=== PATIENT | female | born 1980 | race Caucasian/White ===

== ENCOUNTER 2023-09-14 09:45 | Emergency (ER) | payer MEDICARE, MEDICAID, SELFPAY ==
[2023-09-14 09:45] VITALS: BP 125/70; PULSE 61; RESP 16; TEMP 36.3; O2SAT 100; BMI 21.1
--- NOTE | 2023-09-14 10:23 | EDS_ITS ---
HPI History of Present Illness Chief Complaint: Head Injury Narrative Narrative: Patient is a 43-year-old female with a past medical history of ADHD, intellectual disability, OCD who presented to the emergency department for further evaluation management after a fall yesterday evening around 6:30 PM. According to caregivers at bedside she was out walking and bent over to tie her shoe she lost her balance and fell forward hitting her face. They deny any blood thinning medications. They state that she has been acting her normal self and has not had any nausea vomiting or any other symptoms associated with this. They state that she has been complaining of some facial discomfort associated with this and has not taken anything [id number] for pain control. They note that they are unsure of when her last tetanus shot was as they just recently took over care of her. They did also note that she checked her front tooth as well. [facility] Medical History ADHD Intellectual disability OCD (obsessive compulsive disorder) Patent ductus arteriosus Home Medications ?Medication ?Instructions ?Recorded ?Last Taken ?Type amlodipine 10 mg tablet 10 mg PO QDAY 06/10/23 Unknown History lisinopril 20 mg tablet mg PO 06/10/23 Unknown History metformin 500 mg tablet 500 mg PO QDAY 06/10/23 Unknown History oxybutynin chloride 10 mg 10 mg PO QDAY 06/10/23 Unknown History tablet,extended release 24 hr fluoxetine 20 mg capsule 20 mg PO DAILY #30 caps 07/14/23 Unknown Rx trazodone 100 mg tablet 200 mg (2 x 100 mg) PO QHS PRN 07/14/23 Unknown Rx sleep #60 tabs Allergy/AdvReac Type Severity Reaction Status Date / Time latex Allergy Mild Rash Verified 09/14/23 09:46 paroxetine (From Paxil) Allergy Mild PT UNSURE Verified 09/14/23 09:46 OF REACTION quetiapine (From Seroquel) Allergy Mild PT UNSURE Verified 09/14/23 09:46 OF REACTION Social History Smoking Status: Never smoker alcohol intake: never substance use type: does not use what type of physical activity do you participate in: other details: paces and fidgets most of the day. ROS ROS ED ROS Narrative Constitutional: Denies any headaches, lightheadedness, dizziness Ears nose and throat: Denies any changes in vision double vision blurry vision. Complains of chipped tooth as noted above Cardiovascular: Denies chest pain or palpitations Respiratory: Denies coughing wheezing shortness of breath Abdomen: Denies nausea vomit diarrhea Neurological: Denies any deviation from her normal baseline, numbness, weakness, tingling Skin: Complains of superficial abrasions to her face from the fall EXAM Physical Exam Narrative Exam Narrative: General: Patient sitting in bed resting comfortably did not appear to be in acute distress Head: Normocephalic, atraumatic, Ears nose and throat: Patient has bilateral cerumen noted in her ear canals and TMs unable to be visualized, no raccoon sign no Nixon sign, no nasal septal hematomas noted bilaterally, patient does have a chipped tooth noted in the front portion of her teeth on the upper half no pulp visualized no active bleeding visualized this injury occurred yesterday at 6:30 PM Neck: Soft, supple, trachea midline, no midline tenderness palpation of the cervical spine Cardiovascular: Regular rate and rhythm no murmurs gallops rubs noted Respiratory: Clear to auscultation bilaterally no rales rhonchi or wheeze noted Abdomen: Soft, nondistended, tender to palpation Musculoskeletal: All bony prominences palpated and taken joints through full range of motion no pain elicited, no tenderness palpation thoracolumbar spine Neurological: Patient appears to be at her baseline and acting appropriate, Skin: Patient superficial abrasions to the left side of her forehead and anterior nose no active bleeding noted do appear to be well-healing in nature Psychiatric: Mood and affect appropriate Const Vital Signs: 09/14/23 09:45 09/14/23 10:04 Temperature 97.3 F L Temperature Source Temporal Pulse Rate 61 Respiratory Rate 16 Respiratory Effort Normal Non-Labored Respiratory Depth Normal Respiratory Pattern Normal Blood Pressure 125/70 H Blood Pressure Mean 88 Pulse Ox 100 Oxygen Delivery Method Room Air Room Air MDM MDM MDM Narrative Medical decision making narrative: Patient is a 43-year-old female who presents to the emergency department after a fall yesterday evening around 6:30 PM. Patient at this point time has been acting her normal self according to bedside staff members at the longterm. Patient's tetanus shot will be updated here and she will be given Tylenol. Patient's exam once again is benign and do not feel that any imaging is indicated at this point in time. They were given return precautions and encouraged to return with worsening symptoms or other concerns. They are encouraged to have her follow-up with her dentist in the outpatient setting for her chipped tooth. They are encouraged to use Tylenol/ibuprofen for pain control at home. They are agreeable with this plan they would like to take the patient home all question concerns answered she was discharged home in stable condition. Patient's tetanus shot was updated here. She was also encouraged to follow-up with her primary care physician outpatient setting. Discharge Plan Triage Chief Complaint: Head Injury Other Complaint: Other, Pain/Inj ED Provider: Kemal Azul Dx/Rx/DC Orders Clinical Impression: Fall, Chipped tooth Prescriptions: No Action amlodipine 10 mg tablet 10 mg PO QDAY lisinopril 20 mg tablet PO oxybutynin chloride 10 mg tablet extended release 24hr 10 mg PO QDAY metformin 500 mg tablet 500 mg PO QDAY fluoxetine 20 mg capsule 20 mg PO DAILY Qty: 30 3RF trazodone 100 mg tablet 200 mg PO QHS PRN (Reason: sleep) Qty: 60 3RF Primary Care Provider: Shahriar Sesay Referrals: Shahriar Sesay MD [Primary Care Provider] - Activity Restrictions/Additional Instructions: Use ibuprofen/Tylenol as needed for pain. Your tetanus shot was updated today. Follow-up with your primary care physician outpatient setting. Follow-up with your dentist in the outpatient setting for your chipped tooth. Return with worsening symptoms or other concerns. Print Language: Luxembourgish Disposition Disposition: Home, Self Care
[2023-09-14] MEDS: Acetaminophen 325 MG Tablet 650 MG PO (10:34)
[2023-09-14] MEDS: Diphth,Pertuss(Acell),Tet Vac 0.5 ML Vial IM (10:34)
--- NOTE | 2023-09-14 10:41 | ED.RN ---
new group president gave name of guardian but unable to give number. per assistant account manager pt to have no contact with sister. lost charge card clerk aware and proceeded with tx
[2023-09-14 10:44] VITALS: BP 125/70; PULSE 61; RESP 16; TEMP 36.3; O2SAT 100
== END 2023-09-14 10:46 | disposition home or self-care (01) ==
LOC: ED 10:43
PROVIDERS: Emergency Provider Emergency Medicine; PCP Family Medicine; Visit Provider Emergency Medicine
DX: K03.81 Cracked tooth (principal); W18.39XA Other fall on same level, initial encounter; F79 Unspecified intellectual disabilities
CPT/HCPCS: 90715; 99283

== ENCOUNTER 2023-10-31 13:23 | Inpatient (IN) | payer MEDICARE, MEDICAID, SELFPAY ==
[2023-10-31] VITALS (13 sets, daily range): BP systolic 92–199; BP diastolic 53–157; PULSE 68–129; RESP 15–25; TEMP 36.3–38.6; O2SAT 88–98; BMI 21.8
--- NOTE | 2023-10-31 13:39 | ED.RN ---
PT DOES NOT APPEAR TO BE IN ANY DISTRESS. COLOR NORMAL, BREATHING EVEN AND UNLABORED. PLACE ON 2L O2.
--- NOTE | 2023-10-31 14:45 | RAD_ITS ---
STUDY: X-RAY CHEST REASON FOR EXAM: Female, 43 years old. Requiring O2 TECHNIQUE: Single AP portable view of the chest. COMPARISON: None. FINDINGS: There are bilateral lower lung increased opacities with consolidation. There is no demonstrated pleural abnormality. Normal size heart. Normal mediastinum and zaina. Normal visualized pulmonary arteries. Normal visualized aortic arch and descending thoracic aorta. Normal visualized thoracic spine. Normal visualized ribs, clavicles, and shoulders. There is no demonstrated abnormality of the visualized soft tissue structures of the upper abdomen. RAD/Chest 1 View (Portable) IMPRESSION: Bilateral pneumonia or edema. Electronically Signed: Zac Mcneil MD at 15:42 EDT ,
[2023-10-31 15:28] LABS: Absolute Lymphocyte Count 0.73 X10^3/uL (0.83-4.51); Basophil# 0.04 X10^3/uL; Basophil% 0.5 % (0-1); Hemoglobin 11.2 g/dL (12.0-15.0); Lymphocyte # 0.73 X10^3/ul (0.83-4.51); Lymphocyte % 9.6 % (19-41); Mean Corp Hgb Conc 32.9 g/dL (32-36); Mean Corpuscular Hgb 29.4 pg (27.0-32.0); Mean Corpuscular Volume 89.2 fL (81-99); Mean Platelet Vol. 11.6 fl (6.2-12.0); Monocyte# 0.81 X10^3/uL; Monocyte% 10.6 % (0-10); NRBC Flagged by Analyzer 0 % (0-5); Neutrophil % 78.6 % (47-70); Platelet Count 170 K/mm3 (150-450); RBC Distribution Width CV 12.7 % (11.6-14.6); RBC Distribution Width SD 41.4 fl (35.1-43.9); Red Blood Count 3.81 M/mm3 (4.2-5.4); White Blood Count 7.6 K/mm3 (4.4-11.0)
[2023-10-31 15:42] LABS: Anion Gap 7 (5-15); BUN 13 mg/dL (7-18); BUN/Creat Ratio 18.1 RATIO (10-20); Calcium,Total 8.9 mg/dL (8.5-10.1); Chloride 106 mmol/L (98-107); Creatinine, Serum 0.72 mg/dL (0.55-1.02); EST Glomerular Filtration Rate 94 mL/min (>60); Est Glom Filt Rate - Afr Amer 113 mL/min (>60); Glucose 155 mg/dL (74-106); Potassium 3.6 mmol/L (3.5-5.1); Sodium Level 136 mmol/L (136-145)
--- NOTE | 2023-10-31 16:12 | EDS_ITS ---
HPI History of Present Illness Chief Complaint: Shortness of Breath Narrative Narrative: Patient is a 43-year-old female with a past medical history of ADHD, OCD, impulse control disorder who presented to the emergency department chief complaint of cough, congestion. According the caregiver at bedside she notes that she has been not feeling well for the past few days and had had a cough. She states that she took her to an urgent care and they noted that her oxygen saturation was low prompting them to bring her here for further evaluation management. She states that she is not normally on oxygen at baseline. [facility] Medical History Impulse control disorder ADHD Intellectual disability OCD (obsessive compulsive disorder) Patent ductus arteriosus Home Medications ?Medication ?Instructions ?Recorded ?Last Taken ?Type amlodipine 10 mg tablet 10 mg PO QHS 06/10/23 Unknown History lisinopril 20 mg tablet 20 mg PO DAILY 06/10/23 Unknown History metformin 500 mg tablet 500 mg PO QHS 06/10/23 Unknown History oxybutynin chloride 10 mg 10 mg PO QHS 06/10/23 Unknown History tablet,extended release 24 hr fluoxetine 20 mg capsule 20 mg PO DAILY #30 caps 10/13/23 Unknown Rx acetaminophen 500 mg tablet 1,000 mg PO Q6H PRN fever or pain 10/31/23 Unknown History (Tylenol Extra Strength) aripiprazole 20 mg tablet 20 mg PO QHS 10/31/23 Unknown History norethindrone (contraceptive) 0.35 0.35 mg PO DAILY 10/31/23 Unknown History mg tablet (Jencycla) nystatin 100,000 unit/gram topical 1 applic topical DAILY 10/31/23 Unknown History cream polyethylene glycol 3350 17 17 g PO DAILY 10/31/23 Unknown History gram/dose oral powder trazodone 100 mg tablet 100 mg PO QHS sleep 10/31/23 Unknown History Allergy/AdvReac Type Severity Reaction Status Date / Time latex Allergy Mild Rash Verified 10/31/23 13:25 paroxetine (From Paxil) Allergy Mild PT UNSURE Verified 10/31/23 13:25 OF REACTION quetiapine (From Seroquel) Allergy Mild PT UNSURE Verified 10/31/23 13:25 OF REACTION Social History Smoking Status: Never smoker alcohol intake: never substance use type: does not use what type of physical activity do you participate in: other details: paces and fidgets most of the day. ROS ROS ED ROS Narrative Constitutional: Denies any fevers, chills, headaches Eyes: Denies change in vision double vision blurry vision Cardiovascular: Denies chest pain or palpitations Respiratory: Complains of cough and shortness of breath as noted above Abdomen: Denies nausea vomit diarrhea : Denies any urinary symptoms Neurological: Denies numbness, weakness, tingling Musculoskeletal: Denies back pain Skin: Denies rashes or lesions EXAM Physical Exam Narrative Exam Narrative: General: Patient lying in bed rest comfortably did not appear to be in acute distress Head: Atraumatic, normocephalic Eyes: PERRL bilaterally, EOMI bilaterally, no conjunctival injection noted Neck: Soft, supple, trachea midline Cardiovascular: Regular rate and rhythm no murmurs gallops rubs noted Respiratory: Clear to auscultation bilaterally no rales rhonchi wheeze noted Abdomen: Soft, nondistended, nontender to palpation Extremities: +5/5 strength noted in the bilateral lower extremities, no pedal edema no exam Neurological: Patient is at her baseline according to the caregiver at bedside Skin: Warm, dry, intact Const Vital Signs: 10/31/23 13:25 10/31/23 13:31 10/31/23 14:25 Temperature 98.6 F Temperature Source Temporal Pulse Rate 129 H Respiratory Rate 16 Respiratory Effort Respiratory Pattern Blood Pressure 199/157 H Blood Pressure Mean 171 Pulse Ox 88 92 Oxygen Delivery Method Room Air Nasal Cannula Nasal Cannula Oxygen Flow Rate (L/min) 2 10/31/23 14:25 10/31/23 14:25 10/31/23 14:25 Temperature Temperature Source Pulse Rate 106 H Respiratory Rate 22 H 15 Respiratory Effort Short of Breath Respiratory Pattern Tachypnea Blood Pressure 120/80 Blood Pressure Mean 93 Pulse Ox 91 91 Oxygen Delivery Method Nasal Cannula Nasal Cannula Nasal Cannula Oxygen Flow Rate (L/min) 2 2 2 10/31/23 15:00 10/31/23 16:00 Temperature Temperature Source Pulse Rate 110 H 99 Respiratory Rate 18 15 Respiratory Effort Respiratory Pattern Blood Pressure 129/81 H 124/82 H Blood Pressure Mean 97 96 Pulse Ox 91 91 Oxygen Delivery Method Nasal Cannula Nasal Cannula Oxygen Flow Rate (L/min) 2 2 MDM MDM MDM Narrative Medical decision making narrative: Patient is a 43-year-old female who presented to the emerged part with chief complaint of cough, congestion and hypoxia. Patient will have a workup performed here on the differential diagnose includes but not limited to pneumonia, CHF exacerbation, upper respiratory infection second of ideology. Once workup is obtained reviewed she will be reevaluated. Patient's CBC reviewed showed no evidence of leukocytosis white blood count normal at 7.6, hemoglobin 11.2, platelet count normal at 170. Patient sodium normal at 136, potassium is normal at 3.6, creatinine normal at 0.72. I did add proBNP on to the workup. Patient's chest x-ray was reviewed and showed bilateral pneumonia or edema. At this point time patient was given Rocephin and azithromycin as her chest x- ray was concerning for pneumonia. Patient does not require oxygen at baseline do believe she will warrant admission to the hospital service then. Patient case will be discussed with hospitalist. Did discuss case with hospitalist who accept patient for admission. Patient and caregiver at bedside were notified with all question and concerns answered. Lab Data Labs: Laboratory Results - last 24 hr 10/31/23 15:13 WBC 7.6 RBC 3.81 L Hgb 11.2 L Hct 34.0 L MCV 89.2 MCH 29.4 MCHC 32.9 RDW Std Deviation 41.4 RDW Coeff of Nilda 12.7 Plt Count 170 MPV 11.6 Immature Gran % (Auto) 0.700 Neut % (Auto) 78.6 H Lymph % (Auto) 9.6 L [place] % (Auto) 10.6 H Eos % (Auto) 0.0 Baso % (Auto) 0.5 Absolute Neuts (auto) 6.0 Absolute Lymphs (auto) 0.73 L Nucleated RBC % 0 Sodium 136 Potassium 3.6 Chloride 106 Carbon Dioxide 23.0 Anion Gap 7 BUN 13 Creatinine 0.72 Est GFR (MDRD) Af Amer 113 Est GFR (MDRD) Non-Af 94 BUN/Creatinine Ratio 18.1 Glucose 155 H Calcium 8.9 Radiography Diagnostic Testing: Clinical Impression(s) from Imaging Studies Chest X-Ray 10/31/23 14:45 IMPRESSION: Bilateral pneumonia or edema. Electronically Signed: Zac Mcneil MD at 15:42 EDT , Discharge Plan Triage Chief Complaint: Shortness of Breath ED Provider: Kemal Azul Dx/Rx/DC Orders Clinical Impression: Hypoxia, Pneumonia Prescriptions: No Action amlodipine 10 mg tablet 10 mg PO QHS lisinopril 20 mg tablet 20 mg PO DAILY oxybutynin chloride 10 mg tablet extended release 24hr 10 mg PO QHS metformin 500 mg tablet 500 mg PO QHS norethindrone (contraceptive) [Jencycla] 0.35 mg tablet 0.35 mg PO DAILY acetaminophen [Tylenol Extra Strength] 500 mg tablet 1,000 mg PO Q6H PRN (Reason: fever or pain) nystatin 100,000 unit/gram cream 1 applic topical DAILY polyethylene glycol 3350 17 gram/dose powder 17 g PO DAILY trazodone 100 mg tablet 100 mg PO QHS aripiprazole 20 mg tablet 20 mg PO QHS fluoxetine 20 mg capsule 20 mg PO DAILY Qty: 30 3RF Primary Care Provider: Shahriar Sesay Referrals: Shahriar Sesay MD [Primary Care Provider] - Print Language: Macedonian
--- NOTE | 2023-10-31 16:17 | PCM.HP.STD ---
HPI - General General Date of Admission: 10/31/23 Date of Service: 10/31/23 Chief Complaint: cough, congestion HPI Narrative AMELIE MITTAL, is a 43 F with a PMH as outlined who presents via the ED on 10/31/2023 with a complaint of shortness of breath and cough which has been going on for several days. The cough has been productive of sputum. She denied any fever, chills, nausea, vomiting, palpitations, dizziness or any other complaints. Review of systems was otherwise negative. She went to an urgent care facility today and was found to be hypoxic at 88% on room air so she was sent to the ED. history was mainly gotten from her carer who was with her. Carer says she had been eating well and there were no other active complaints. Patient just kept on asking she could go home and could not contribute much to the history. Vitals in the ED were blood pressure 124/82, pulse rate of 99, respiratory rate of 15 and she was saturating at 91% on 2 L of oxygen. CBC showed hemoglobin of 11.2, WBC of 7.6 and platelets of 170. Chemistry was unremarkable. BNP was pending. Chest x-ray showed bilateral pneumonia or edema. She has been admitted to be managed for community-acquired pneumonia. She was started on ceftriaxone and azithromycin in the ED. [facility] Medical History Impulse control disorder ADHD Intellectual disability OCD (obsessive compulsive disorder) Patent ductus arteriosus Home Medications ?Medication ?Instructions ?Recorded ?Last Taken ?Type amlodipine 10 mg tablet 10 mg PO QHS 06/10/23 Unknown History lisinopril 20 mg tablet 20 mg PO DAILY 06/10/23 Unknown History metformin 500 mg tablet 500 mg PO QHS 06/10/23 Unknown History oxybutynin chloride 10 mg 10 mg PO QHS 06/10/23 Unknown History tablet,extended release 24 hr fluoxetine 20 mg capsule 20 mg PO DAILY #30 caps 10/13/23 Unknown Rx acetaminophen 500 mg tablet 1,000 mg PO Q6H PRN fever or pain 10/31/23 Unknown History (Tylenol Extra Strength) aripiprazole 20 mg tablet 20 mg PO QHS 10/31/23 Unknown History norethindrone (contraceptive) 0.35 0.35 mg PO DAILY 10/31/23 Unknown History mg tablet (Jencycla) nystatin 100,000 unit/gram topical 1 applic topical DAILY 10/31/23 Unknown History cream polyethylene glycol 3350 17 17 g PO DAILY 10/31/23 Unknown History gram/dose oral powder trazodone 100 mg tablet 100 mg PO QHS sleep 10/31/23 Unknown History Allergy/AdvReac Type Severity Reaction Status Date / Time latex Allergy Mild Rash Verified 10/31/23 13:25 paroxetine (From Paxil) Allergy Mild PT UNSURE Verified 10/31/23 13:25 OF REACTION quetiapine (From Seroquel) Allergy Mild PT UNSURE Verified 10/31/23 13:25 OF REACTION Social History Smoking Status: Never smoker alcohol intake: never substance use type: does not use what type of physical activity do you participate in: other details: paces and fidgets most of the day. ROS ROS Narrative review of systems obtained mainly from her care as patient could not really contribute much to the history. Constitutional Constitutional: Denies anorexia, chills, fatigue, fever(s), malaise or weakness Eyes Eyes: Denies change in vision ENT HEENT: Denies dysphagia or headache(s) Cardiovascular Cardiovascular: Denies chest pain, dyspnea on exertion, lightheadedness, orthopnea, palpitations, paroxysmal nocturnal dyspnea, rapid heart rate or syncope Respiratory/Chest Respiratory/Chest: Reports cough, dyspnea, productive cough, shortness of breath at rest, shortness of breath with exertion and wheezing Gastrointestinal Gastrointestinal: Denies abdominal pain, constipation, diarrhea, nausea or vomiting Genitourinary Genitourinary: Denies burning urination or dysuria Musculoskeletal Musculoskeletal: Denies arthralgias or back pain Neurologic Neurologic: Denies confusion, dizziness, focal weakness or headache(s) Psychiatric Psychiatric: Denies anxiety or depression Hematologic/Lymphatic Hematologic/Lymphatic: Denies anemia Vital Signs Vital Signs Vital Signs: 10/31/23 13:25 10/31/23 13:31 10/31/23 14:25 Temperature 98.6 F Temperature Source Temporal Pulse Rate 129 H Respiratory Rate 16 Respiratory Effort Respiratory Pattern Blood Pressure 199/157 H Blood Pressure Mean 171 Pulse Ox 88 92 Oxygen Delivery Method Room Air Nasal Cannula Nasal Cannula Oxygen Flow Rate (L/min) 2 10/31/23 14:25 10/31/23 14:25 10/31/23 14:25 Temperature Temperature Source Pulse Rate 106 H Respiratory Rate 22 H 15 Respiratory Effort Short of Breath Respiratory Pattern Tachypnea Blood Pressure 120/80 Blood Pressure Mean 93 Pulse Ox 91 91 Oxygen Delivery Method Nasal Cannula Nasal Cannula Nasal Cannula Oxygen Flow Rate (L/min) 2 2 2 10/31/23 15:00 10/31/23 16:00 Temperature Temperature Source Pulse Rate 110 H 99 Respiratory Rate 18 15 Respiratory Effort Respiratory Pattern Blood Pressure 129/81 H 124/82 H Blood Pressure Mean 97 96 Pulse Ox 91 91 Oxygen Delivery Method Nasal Cannula Nasal Cannula Oxygen Flow Rate (L/min) 2 2 Physical Exam Const alert and no apparent distress General Appearance: cooperative HEENT normocephalic, head/scalp atraumatic, hearing grossly normal bilaterally, moist oral mucous membranes and oropharynx normal Mouth: oral and palatal mucosa normal Eyes PERRL, EOMs intact bilaterally and conjunctivae normal Neck no lymphadenopathy and supple Resp Resp Narrative: Mildly diminished breath sounds bibasilarly. No wheezes or crackles. On 2 L of oxygen. Cardio regular rate, regular rhythm, S1 normal heart sound, S2 normal heart sound and no murmurs GI normal to inspection, nondistended, normoactive bowel sounds, soft to palpation, non-tender and non-distended Extremity normal to inspection, full ROM and no clubbing, cyanosis or edema Neuro CN's II-XII intact bilaterally, moves all extremities and no focal motor deficits Neuro Narrative: alert, but confused. Sensorium / Orientation: awake and alert Motor Exam: strength 5/5 throughout Psych affect normal Results Lab / Micro Data 10/31/23 15:13 10/31/23 15:13 Labs: Laboratory Results - last 24 hr 10/31/23 15:13: WBC 7.6, RBC 3.81 L, Hgb 11.2 L, Hct 34.0 L, MCV 89.2, MCH 29.4, MCHC 32.9, RDW Std Deviation 41.4, RDW Coeff of Nilda 12.7, Plt Count 170, MPV 11.6, Immature Gran % (Auto) 0.700, Neut % (Auto) 78.6 H, Lymph % (Auto) 9.6 L, [place] % (Auto) 10.6 H, Eos % (Auto) 0.0, Baso % (Auto) 0.5, Absolute Neuts (auto) 6.0, Absolute Lymphs (auto) 0.73 L, Nucleated RBC % 0, Sodium 136, Potassium 3.6, Chloride 106, Carbon Dioxide 23.0, Anion Gap 7, BUN 13, Creatinine 0.72, Est GFR (MDRD) Af Amer 113, Est GFR (MDRD) Non-Af 94, BUN/Creatinine Ratio 18.1, Glucose 155 H, Calcium 8.9 Micro: Microbiology 10/31/23 15:19 Mucosa - Nose SARS-CoV-2, Influenza & RSV (PCR) - Final Imaging Radiology Impression Chest X-Ray 10/31/23 14:45 IMPRESSION: Bilateral pneumonia or edema. Electronically Signed: Zac Mcneil MD at 15:42 EDT , Assessment & Plan Assessment/Plan (1) Pneumonia: (2) Hypoxia: PLAN: Plan #HYpoxia due to community acquired pneumonia Admit to [facility] WBC is not elevated. Currently on 2 L of oxygen at home. Does not wear oxygen at home. Get urine for strep and Legionella antigens. Respiratory panel negative for COVID and influenza as well as RSV Will continue IV ceftriaxone and azithromycin started in the ED. Get sputum cultures. Breathing treatments bronchodilators. Titrate oxygen to maintain saturation above 90%. #Hypertension: On amlodipine and lisinopril. IV hydralazine. #ADHD: On paroxetine and aripiprazole #Type 2 diabetes mellitus: On lisinopril DVT prophylaxis: Lovenox CODE STATUS: presumptive full code Patient has an search specialist who is her guardian, Crystal Abreu. I tried calling her at the [employer] ([phone]). Voicemail left for her guardian to contact the medical team to clarify the CODE STATUS. Per patient's carer, patient's mother is not allowed to contact patient or be involved in her care. Charges/Coding Visit Charges Inpatient E&M: 44435 Init Hosp L3
[2023-10-31] MEDS: Ceftriaxone 1 GM/50 ML BAG IV (16:28)
[2023-10-31] MEDS: Acetaminophen 500 MG Tablet 1000 MG PO (16:36)
--- NOTE | 2023-10-31 16:45 | NURSING ---
MED SURG KORAM HYPOXIA, PNEUMONIA
[2023-10-31 16:46] LABS: BNP,B-Type NATRIURETIC PEPTIDE 29.2 pg/mL (0-100)
[2023-10-31] MEDS: Azithromycin 500 MG in Dextrose 5%-Water (250mL Bag) 250 ML 250 MG IV (16:54)
--- NOTE | 2023-10-31 17:17 | NURSING ---
MED SURG KORAM HYPOXIA, PNEUMONIA
[2023-10-31] MEDS: 0.9% Normal Saline (1000mL) 1,000 ML 125 ML IV (19:06)
[2023-10-31] MEDS: Ipratropium/Albuterol Sulfate 3 ML AMPUL.NEB INHALATION (19:56)
[2023-10-31] MEDS: ARIPiprazole 10 MG Tablet 20 MG PO (21:18)
[2023-10-31] MEDS: Tolterodine Tartrate 2 MG CAP.SA PO (21:19)
[2023-10-31] MEDS: amLODIPine 10 MG Tablet PO (21:19)
[2023-10-31] MEDS: traZODone 100 MG Tablet PO (21:19)
[2023-11-01] VITALS (12 sets, daily range): BP systolic 108–126; BP diastolic 68–78; PULSE 74–101; RESP 16–18; TEMP 36.6–37.9; O2SAT 92–97
[2023-11-01] MEDS: 0.9% Normal Saline (1000mL) 1,000 ML 125 ML IV (03:22)
[2023-11-01 06:56] LABS: Absolute Lymphocyte Count 0.55 X10^3/uL (0.83-4.51); Absolute Neutrophil Count 5.1 X10^3/uL (2.0-7.7); Basophil# 0.02 X10^3/uL; Basophil% 0.3 % (0-1); Eosinophil# 0.06 X10^3/uL; Eosinophils% 0.9 % (0-5); Hematocrit 32.8 % (37-47); Hemoglobin 10.7 g/dL (12.0-15.0); Lymphocyte # 0.55 X10^3/ul (0.83-4.51); Lymphocyte % 8.5 % (19-41); Mean Corp Hgb Conc 32.6 g/dL (32-36); Mean Corpuscular Hgb 29.4 pg (27.0-32.0); Mean Corpuscular Volume 90.1 fL (81-99); Mean Platelet Vol. 11.9 fl (6.2-12.0); Monocyte# 0.71 X10^3/uL; NRBC Flagged by Analyzer 0 % (0-5); Neutrophil % 78.8 % (47-70); POSITIVE DIFFERENTIAL YES; Platelet Count 151 K/mm3 (150-450); RBC Distribution Width CV 12.9 % (11.6-14.6); RBC Distribution Width SD 42.5 fl (35.1-43.9); Red Blood Count 3.64 M/mm3 (4.2-5.4); White Blood Count 6.5 K/mm3 (4.4-11.0)
[2023-11-01 07:16] LABS: Anion Gap 7 (5-15); BUN 8 mg/dL (7-18); BUN/Creat Ratio 15.2 RATIO (10-20); Calcium,Total 8.5 mg/dL (8.5-10.1); Chloride 110 mmol/L (98-107); Creatinine, Serum 0.53 mg/dL (0.55-1.02); EST Glomerular Filtration Rate 133 mL/min (>60); Est Glom Filt Rate - Afr Amer 161 mL/min (>60); Estimated Creatinine Clearance 116.97 ml/min; Glucose 120 mg/dL (74-106); Potassium 3.6 mmol/L (3.5-5.1); Sodium Level 139 mmol/L (136-145)
--- NOTE | 2023-11-01 07:50 | PCM.PN.HOSP ---
Reason for Visit Reason for Visit: Cough/hypoxia Subjective Subjective Patient is a 43-year-old white female who presented to the emergency department [facility] on 10/31/2023 with cough and fever. Patient does have some developmental disability and a lot of the history was obtained from her caregiver. Evidently, she has been having some shortness of breath and cough for several days. Cough has been productive of sputum. She denied any home fever, chills, nausea, vomiting, chest pain, palpitations or dizziness. She presented to an urgent care on the day of presentation and was found to be hypoxic at 88% on room air so she was sent to the emergency department for further evaluation. She has been eating well and there have been no other complaints with regards to her functional status. Vital signs on presentation showed a temperature of 98.6, heart rate 129, blood pressure was initially 199/157 with a repeat of 120/80, respiratory rate was 16-25 and oxygen saturations were 88% on room air. She was placed on 2 L nasal cannula with improvement in her oxygenation status to 90 to 92%. While in the emergency department she developed a fever with a Tmax of 101.5. CBC showed a normal white count with a mild anemia having a hemoglobin 11.2 and normal platelet count however she did have a left shift within 78.6% neutrophilia. Her chemistry panel was unremarkable other than some mild hyperglycemia with a blood sugar of 155. BNP was obtained and found to be normal at 29.2. Chest x-ray showed bilateral increased opacities with consolidation but no evidence of pleural abnormality and was otherwise unremarkable. No issues. Patient repetitively asks if she can go home. I did inform her that we would get her home once she was off oxygen or at least so stability for 24 hours. I was informed by case management that she would be able to go back to her [facility] situation on oxygen if need be. Objective Data Objective Data Vital Signs: Vital Signs Temp Pulse Resp BP Pulse Ox O2 Del Method O2 Flow Rate 98.4 F 90 18 106/69 94 Nasal Cannula 2 11/01/23 02:43 11/01/23 03:57 11/01/23 02:43 10/31/23 20:43 11/01/23 03:57 11/01/23 03:57 11/01/23 03:57 Oxygen Flow Rate (L/min) 2 Oxygen Delivery Method Nasal Cannula Weight: 57.697 kg Body Mass Index (BMI) 21.8 Intake & Output: Intake and Output for Last 24 Hours 10/30/23 10/31/23 11/01/23 23:59 23:59 23:59 Intake Total 305 / 805 1500 / 1500 Output Total 225 / 225 Balance 305 / 580 1275 / 1275 Lab / Micro Data 11/01/23 06:00 11/01/23 06:00 Labs: Laboratory Results - last 24 hr 10/31/23 15:13: WBC 7.6, RBC 3.81 L, Hgb 11.2 L, Hct 34.0 L, MCV 89.2, MCH 29.4, MCHC 32.9, RDW Std Deviation 41.4, RDW Coeff of Nilda 12.7, Plt Count 170, MPV 11.6, Immature Gran % (Auto) 0.700, Neut % (Auto) 78.6 H, Lymph % (Auto) 9.6 L, Lynn % (Auto) 10.6 H, Eos % (Auto) 0.0, Baso % (Auto) 0.5, Absolute Neuts (auto) 6.0, Absolute Lymphs (auto) 0.73 L, Nucleated RBC % 0, Sodium 136, Potassium 3.6, Chloride 106, Carbon Dioxide 23.0, Anion Gap 7, BUN 13, Creatinine 0.72, Est GFR (MDRD) Af Amer 113, Est GFR (MDRD) Non-Af 94, BUN/Creatinine Ratio 18.1, Glucose 155 H, Calcium 8.9, B-Natriuretic Peptide 29.2 11/01/23 06:00: WBC 6.5, RBC 3.64 L, Hgb 10.7 L, Hct 32.8 L, MCV 90.1, MCH 29.4, MCHC 32.6, RDW Std Deviation 42.5, RDW Coeff of Nilda 12.9, Plt Count 151, MPV 11.9, Immature Gran % (Auto) 0.500, Neut % (Auto) 78.8 H, Lymph % (Auto) 8.5 L, Lynn % (Auto) 11.0 H, Eos % (Auto) 0.9, Baso % (Auto) 0.3, Absolute Neuts (auto) 5.1, Absolute Lymphs (auto) 0.55 L, Nucleated RBC % 0, Sodium 139, Potassium 3.6, Chloride 110 H, Carbon Dioxide 22.0, Anion Gap 7, BUN 8, Creatinine 0.53 L, Estim Creat Clear Calc 116.97, Est GFR (MDRD) Af Amer 161, Est GFR (MDRD) Non-Af 133, BUN/Creatinine Ratio 15.2, Glucose 120 H, Calcium 8.5 Micro: Microbiology 10/31/23 20:55 Urine, Random Streptococcus pneumoniae Antigen (M - Final 10/31/23 20:55 Urine, Clean Catch Legionella Antigen - Final 10/31/23 15:19 Mucosa - Nose SARS-CoV-2, Influenza & RSV (PCR) - Final Radiography Diagnostic Testing: Radiology Impression Chest X-Ray 10/31/23 14:45 IMPRESSION: Bilateral pneumonia or edema. Electronically Signed: Zac Mcneil MD at 15:42 EDT , Physical Exam Const Constitutional Narrative: Thin, middle-aged, white female, lying in left side-lying in bed under multiple covers, appears comfortable, does not appear toxic, currently on 2 L nasal cannula with no signs of respiratory distress HEENT head/scalp atraumatic and moist oral mucous membranes HEENT Narrative: Dentition is poor, lips are slightly dry, mucous membranes are otherwise moist Head and Scalp: normocephalic Resp normal respiratory effort, no retractions and no use of accessory muscles Resp Narrative: Few crackles at bases bilaterally right greater than left Auscultation: crackles; Negative for rhonchi or wheezes Cardio regular rate, regular rhythm, S1 normal heart sound, S2 normal heart sound, no murmurs, no rub, no gallops and no clicks GI normal to inspection, nondistended, normoactive bowel sounds, soft to palpation and non-tender Extremity no clubbing, cyanosis or edema Extremity Narrative: Pedal and radial pulses are 2+ Neuro oriented x3 Psych Psych Narrative: Currently calm, repetitive questioning when she can go home Assessment & Plan Assessment/Plan (1) Fever: (2) Hyperglycemia: (3) Pneumonia: (4) Hypoxia: PLAN: Plan Acute hypoxia secondary to acquired pneumonia -Chest x-ray consistent with consolidation probable pneumonia and atelectasis -At baseline is on room air and currently requiring 2 L of oxygen to keep sats greater than or equal to 89% -Wean oxygen as able -Will check amatory pulse ox prior to discharge -Continue scheduled and as needed DuoNebs -Strep pneumo and Legionella antigens are negative -COVID/flu/RSV are negative -check respiratory viral panel -Continue ceftriaxone but discontinue azithromycin with negative Legionella antigen -Sputum culture ordered but still pending as patient has not been able to produce -Add incentive spirometry and Acapella -Add Mucinex 1200 p.o. twice daily DM-2 hyperglycemia -Highly suspect acute elevations are reactive due to infection -Hold home metformin -Carb controlled diet -Accu-Cheks as ordered -SSI Essential hypertension -Continue home amlodipine -Continue home lisinopril Urinary incontinence -Continue home oxybutynin Chronic constipation -Continue home MiraLAX OCD/impulse control disorder -Continue aripiprazole -Monitor for orthostatic hypotension -Resides at a [facility] Intellectual disability -Continued outpatient follow-up ADHD -Management per outpatient psychiatrist Intermittent insomnia -Continue home trazodone DVT prophylaxis -Continue enoxaparin 40 daily Charges/Coding Visit Charges Inpatient E&M: 70650 Subs Hosp L2
[2023-11-01] MEDS: Ceftriaxone 1 GM/50 ML BAG IV (10:26)
[2023-11-01] MEDS: Enoxaparin 40 MG/0.4 ML Syringe SC (10:27)
[2023-11-01] MEDS: Nystatin Ointment 1 APPLIC TOPICAL (10:27)
[2023-11-01] MEDS: Polyethylene Glycol 3350 17 GM PACKET PO (10:28)
--- NOTE | 2023-11-01 10:53 | CASEMGMT ---
Social Work Pt is here from a [facility], guardian is Crystal Brady, social group worker is Vanessa Aparicio and pt's machine adjuster leader case trim is Karen Muhammad. BUDDY spoke w/Xuan and with Vanessa to ascertain how pt was managing prior to this hospitalization and anticipated discharge plan. PCP: Dr. Sesay Specialists: Pt does have specialists but neither Crystal or Vanessa know, the information is in pt's file and they do not have access on the weekend. Insurance/Prescription Coverage: [facility] Medicare HMO/Medicaid Pharmacy: [facility] LW/POA: Pt has a guardian, Crystal Abrue. Form not on chart and Vanessa cannot access today. BUDDY was able to look up the information in the [address] database to verify Crystal Abreu is guardian. Information printed and placed on chart. LNOK: Unknown, pt has guardian, social group worker and machine adjuster leader case trim as outlined above Living arrangements/Prior level of function: Pt lives in a [facility] at present. Pt needs help w/cooking, cleaning, medications, transportation. Pt needs prompting and some minimal assist for bathing, dressing. Pt walks independently. DME: Pt does not utilize any DME, does not have home O2. Plan: Home. BUDDY spoke w/both Crystal and with Vanessa, it is anticipated pt will be able to return to the [facility]p at discharge. Pt can return on home O2. Neither Crystal or social group worker Vanessa has any preference for home O2 DME provider, list not needed, as long as provider takes pt's insurance. It is not anticipated pt would need HHC. As per Vanessa, should HHC be needed, they prefer to use [facility] out of [place]. This is not anticipated however. If pt is ready for d/c this weekend, Vanessa states to call her and they will pick her up. Pt's guardian Crystal states to just call Vanessa if pt is d/c on the weekend. BUDDY remains available should any additional discharge needs arise, otherwise pt will return to [facility]p, with possible home O2. DORIAN Garcia
--- NOTE | 2023-11-01 15:44 | CPS ---
asked by nursing this am, to not go into patient's room. nursing states she is covered in fesces from head to toe.
[2023-11-01] MEDS: Acetaminophen 325 MG Tablet 650 MG PO (19:50)
[2023-11-01] MEDS: ARIPiprazole 10 MG Tablet 20 MG PO (20:57)
[2023-11-01] MEDS: guaiFENesin 1,200 MG Tablet 1200 MG PO (20:58)
[2023-11-01] MEDS: Tolterodine Tartrate 2 MG CAP.SA PO ×2 (20:58)
[2023-11-01] MEDS: amLODIPine 10 MG Tablet PO (20:58)
[2023-11-01] MEDS: traZODone 100 MG Tablet PO (20:58)
[2023-11-02 01:23] VITALS: BP 122/71; PULSE 90; RESP 18; TEMP 37.3; O2SAT 92
[2023-11-02 01:25] VITALS: RESP 18; O2SAT 92
[2023-11-02 07:20] VITALS: BP 137/62; PULSE 99; RESP 16; TEMP 37.8; O2SAT 93
[2023-11-02 08:00] VITALS: O2SAT 92; O2SAT 93
[2023-11-02] MEDS: Nystatin Ointment 1 APPLIC TOPICAL (08:37)
[2023-11-02] MEDS: Acetaminophen 325 MG Tablet 650 MG PO (08:37)
[2023-11-02] MEDS: Lisinopril 20 MG Tablet PO (08:38)
[2023-11-02] MEDS: Polyethylene Glycol 3350 17 GM PACKET PO (08:38)
[2023-11-02] MEDS: FLUoxetine 20 MG Capsule PO (08:38)
[2023-11-02] MEDS: guaiFENesin 1,200 MG Tablet 1200 MG PO (08:39)
--- NOTE | 2023-11-02 12:24 | PCM.DC.SUM ---
Providers Date of Admission: 10/31/23 Primary Care Physician: Dr. Shahriar Sesay MD Reason For Visit: HYPOXIA,PNEUMONIA Diagnosis Discharge Diagnosis (1) Fever: Status: Acute Code(s): R50.9 - Fever, unspecified (2) Hyperglycemia: Status: Acute Code(s): R73.9 - Hyperglycemia, unspecified (3) Pneumonia: Status: Acute Code(s): J18.9 - Pneumonia, unspecified organism (4) Hypoxia: Status: Acute Code(s): R09.02 - Hypoxemia Medications at Discharge Home Medications amlodipine 10 mg tablet 10 mg PO QHS 06/10/23 lisinopril 20 mg tablet 20 mg PO DAILY 06/10/23 metformin 500 mg tablet 500 mg PO QHS 06/10/23 oxybutynin chloride 10 mg tablet,extended release 24 hr 10 mg PO QHS 06/10/23 fluoxetine 20 mg capsule 20 mg PO DAILY #30 caps 10/13/23 aripiprazole 20 mg tablet 20 mg PO QHS 10/31/23 norethindrone (contraceptive) 0.35 mg tablet (Jencycla) 0.35 mg PO DAILY 10/31/23 nystatin 100,000 unit/gram topical cream 1 applic topical DAILY 10/31/23 polyethylene glycol 3350 17 gram/dose oral powder 17 g PO DAILY 10/31/23 trazodone 100 mg tablet 100 mg PO QHS sleep 10/31/23 acetaminophen 500 mg tablet (Tylenol Extra Strength) 1,000 mg (2 x 500 mg) PO Q8 fever or pain #1 TAB 11/02/23 levofloxacin 750 mg tablet 750 mg PO DAILY #5 tabs 11/02/23 Hospital Course Summary of Care Provided Hospital Course: Ms Max is a 43-year-old white female who presented to the emergency department [facility] on 10/31/2023 with cough and fever. Patient does have some developmental disability and a lot of the history was obtained from her caregiver. Evidently, she has been having some shortness of breath and cough for several days. Cough has been productive of sputum. She denied any home fever, chills, nausea, vomiting, chest pain, palpitations or dizziness. She presented to an urgent care on the day of presentation and was found to be hypoxic at 88% on room air so she was sent to the emergency department for further evaluation. She has been eating well and there have been no other complaints with regards to her functional status. Vital signs on presentation showed a temperature of 98.6, heart rate 129, blood pressure was initially 199/157 with a repeat of 120/80, respiratory rate was 16-25 and oxygen saturations were 88% on room air. She was placed on 2 L nasal cannula with improvement in her oxygenation status to 90 to 92%. While in the emergency department, she developed a fever with a Tmax of 101.5. CBC showed a normal white count with a mild anemia having a hemoglobin 11.2 and normal platelet count however she did have a left shift within 78.6% neutrophilia. Her chemistry panel was unremarkable other than some mild hyperglycemia with a blood sugar of 155. BNP was obtained and found to be normal at 29.2. Chest x-ray showed bilateral increased opacities with consolidation but no evidence of pleural abnormality and was otherwise unremarkable. She was admitted to the medical floor and placed on antibiotics to cover community-acquired pneumonia. She initially required 2 L of nasal cannula however within 12 hours of admission we were able to wean her down to room air at rest and with exertion during the day. She did continue to have some oxygen desaturations at night but the lowest was 88%. I do wonder if she has a bit of sleep apnea or nocturnal hypoxia as her daytime oxygenation was adequate consistently in the mid upper 90s. We did try to place oxygen on her at night however she kept removing it would not keep it on. Patient was unfortunately not able to produce a sputum culture for us. Her strep pneumo and Legionella antigens were negative. Respiratory viral panel was negative as was COVID/flu/RSV panel. For her fevers we will continue 1000 g of Tylenol every 8 hours scheduled for the next 3 days. She will complete her treatment for pneumonia with Levaquin 750 mg daily for the next 5 days. I have asked that she follow-up with her primary care physician to be seen within the next week, preferably later in the week to see how she is doing clinically posttreatment. Patient was be able to be discharged back to her nursing home in stable condition on 11/02/2023. Discharge diagnoses: Acute hypoxia-resolved Community-acquired pneumonia DM-2 with hyperglycemia Essential hypertension Urinary incontinence Chronic constipation OCD/impulse control disorder Intellectual disability ADHD Intermittent insomnia Physical Exam Const alert, oriented x3, no apparent distress, average body habitus and well nourished; Negative for no limitations Constitutional Narrative: Thin, middle-aged, white female, lying in right side naked in bed with minimal covers, appears comfortable, nontoxic, on room air with stable oxygen saturations General Appearance: cooperative, comfortable, well kempt and well developed Orientation / Consciousness: awake and other Other Details: Difficult to assess due to intellectual disability Exam Limitations: other limitations HEENT normocephalic, head/scalp atraumatic, hearing grossly normal bilaterally, moist oral mucous membranes and oropharynx normal HEENT Narrative: Dentition is poor, Mallampati is 2-3, no thrush Eyes PERRL, EOMs intact bilaterally and conjunctivae normal Eyes Narrative: No scleral icterus Neck no lymphadenopathy and supple Neck Narrative: Trachea midline, no thyroid enlargement Resp normal respiratory effort, no retractions, no use of accessory muscles and clear to auscultation bilaterally Auscultation: Negative for crackles, rhonchi or wheezes Cardio regular rate, regular rhythm, S1 normal heart sound, S2 normal heart sound, no murmurs, no rub, no gallops and no clicks GI normal to inspection, nondistended, normoactive bowel sounds, soft to palpation and non-tender Extremity no clubbing, cyanosis or edema Extremity Narrative: Pedal and radial pulses are 2+ Skin no rashes or lesions noted, no wounds, skin turgor normal and no jaundice Neuro oriented x3, CN's II-XII intact bilaterally, moves all extremities and no focal motor deficits Neuro Narrative: Speech is difficult to understand due to underlying disabilities Sensorium / Orientation: awake and alert Psych Psych Narrative: Calm, childlike, Weight / BMI Weight Weight: 57.697 kg Body Mass Index (BMI) 21.8 ABG / Lab / Microbiology Data 11/01/23 06:00 11/01/23 06:00 Microbiology: Microbiology 11/01/23 11:15 Mucosa - Nasopharyngeal Respiratory Panel (PCR) - Final 10/31/23 20:55 Urine, Random Streptococcus pneumoniae Antigen (M - Final 10/31/23 20:55 Urine, Clean Catch Legionella Antigen - Final 10/31/23 15:19 Mucosa - Nose SARS-CoV-2, Influenza & RSV (PCR) - Final D/C Instructions Discharge Diet: 1800 Calorie Control Diet Discharge Activity: Return to Normal Activity (Progress activity slowly as patient tolerates) Meaningful Use Info Meaningful Use Meaningful Use Diagnoses (Choose all that apply): None applicable Ischemic Stroke Statin Dosing Therapy Reference: STATIN DOSE THERAPY REFERENCE: * Patients > 75 years receive moderate or high dose statin therapy. * Patients 75 years or YOUNGER should receive HIGH intensity statin dose unless contraindicated. You will be required to document reason for non-treatment if statin daily dose does not meet guidelines. HIGH DOSE STATIN THERAPY DAILY Atorvastatin > than or = to 40 mg Rosuvastatin > than or = to 20 mg Amlodipine + Atorvastatin > than or = to 2.5/40 mg Ezetimibe + Simvastatin 10/80 mg Simvastatin 80mg Discharge Plan Admission Admit Date/Time: 10/31/23 16:41 Primary Reason for Your Visit: Shortness of breath/fever Attending Provider: Rosa Ricks Primary Care Provider: Shahriar Sesay Consulting Providers: Aparna Benavides Instructions Additional Instructions / Restrictions: 1. Please give Tylenol every 8 hours for 3 days and then go back to as needed Tylenol 2. Please keep patient up and moving around during the day to promote deep breathing Discharge Orders/Prescriptions Prescriptions: New levofloxacin 750 mg tablet 750 mg PO DAILY Qty: 5 0RF Continued amlodipine 10 mg tablet 10 mg PO QHS lisinopril 20 mg tablet 20 mg PO DAILY oxybutynin chloride 10 mg tablet extended release 24hr 10 mg PO QHS metformin 500 mg tablet 500 mg PO QHS norethindrone (contraceptive) [Jencycla] 0.35 mg tablet 0.35 mg PO DAILY nystatin 100,000 unit/gram cream 1 applic topical DAILY polyethylene glycol 3350 17 gram/dose powder 17 g PO DAILY trazodone 100 mg tablet 100 mg PO QHS aripiprazole 20 mg tablet 20 mg PO QHS fluoxetine 20 mg capsule 20 mg PO DAILY Qty: 30 3RF Changed acetaminophen [Tylenol Extra Strength] 500 mg tablet 1,000 mg PO Q8 Qty: 1 0RF Rx Instructions: Please give every 8 hours scheduled for 3 days then go back to as needed Referrals / Follow Up: Shahriar Sesay MD [Primary Care Provider] - Within 1 Week Disposition Disposition (needs filled in before D/C Order can be placed): Home, Self Care Charges/Coding Visit Charges Inpatient E&M: 43199 Disch Hosp >30min
[2023-11-02 13:30] VITALS: BP 117/84; PULSE 95; RESP 16; TEMP 37.1; O2SAT 94
== END 2023-11-02 14:26 | disposition home or self-care (01) | DRG 195 ==
LOC: ED 16:29 → MS3 11-01 06:51
PROVIDERS: Admitting Provider Student in an Organized Health Care Education/Training Program; Emergency Provider Emergency Medicine; PCP Family Medicine; Visit Provider Internal Medicine
DX: J18.9 Pneumonia, unspecified organism (principal); E11.65 Type 2 diabetes mellitus with hyperglycemia; I10 Essential (primary) hypertension; F63.9 Impulse disorder, unspecified; K59.09 Other constipation; F42.9 Obsessive-compulsive disorder, unspecified; R09.02 Hypoxemia; F90.9 Attention-deficit hyperactivity disorder, unspecified type; F79 Unspecified intellectual disabilities; G47.00 Insomnia, unspecified; R32 Unspecified urinary incontinence; Z79.84 Long term (current) use of oral hypoglycemic drugs; Z79.899 Other long term (current) drug therapy
CPT/HCPCS: 36415; 71045; 80048; 83880; 85025; 87449; 87631; 87633; 94640; 97161; 97165; 99283; J7030; J7050; A4216